=== PATIENT | male | born 1965 | race African-American/Black ===

== ENCOUNTER 2017-08-05 08:01 | Emergency (ER) | payer SELFPAY ==
[~2017-08-05] VITALS: Ht 175.3 cm; Wt 130.0 kg
[2017-08-05 08:27] LABS: HEMATOCRIT 48.2 % (39.0-50.0); IMMATURE GRANULOCYTES 0.2 % (0.0-1.0); MEAN CELL VOLUME 95.8 fL CALC (80.0-100.0); MEAN CORPUSCULAR HGB 31.8 pG CALC (26.0-32.0); MEAN CORPUSCULAR HGB CONC 33.2 g/L CALC (32.0-36.0); NEUT# 4.85 thou/uL (1.82-7.42); RED BLOOD COUNT 5.03 mill/uL (4.70-6.10); RED CELL DISTRI WIDTH 12.5 % (11.5-15.5)
[2017-08-05 08:39] LABS: ALBUMIN 4.5 g/dL (3.2-5.0); BILIRUBIN, TOTAL 0.9 mg/dL (0.0-1.4); CREATININE 1.5 mg/dL (0.7-1.3); POTASSIUM 3.9 mmol/l (3.5-5.1); TOTAL PROTEIN 7.8 g/dL (6.3-8.2)
[2017-08-05] MEDS ORDERED: HYDROCO/APAP1 TA9 PO (10:13)
[2017-08-05] MEDS ORDERED: CEPHALEXIN500 M1 PO (10:13)
[2017-08-05] MEDS ORDERED: TAMSULOSIN0.4 MG PO (10:13)
[2017-08-05] MEDS ORDERED: MOTRIN400 MG PO (10:13)
[2017-08-05] MEDS ORDERED: ONDANSETRON4 MG PO (10:15)
[2017-08-05] MEDS ORDERED: PHENERGAN25 M1 PO (10:35)
[2017-08-05] MEDS ORDERED: RANITIDINE150 M1 PO (10:35)
[2017-08-05 10:40] VITALS: BP 141/75
[2017-08-05 11:21] LABS: URINE BILIRUBIN - DIPSTICK NEGATIVE (NEGATIVE); URINE BLOOD DIPSTICK LARGE (NEGATIVE); URINE COLOR YELLOW; URINE GLUCOSE - DIPSTICK NEGATIVE (NEGATIVE); URINE KETONE NEGATIVE (NEGATIVE); URINE NITRITE - DIPSTICK NEGATIVE (Negative); URINE PROTEIN - DIPSTICK NEGATIVE (NEG-TRACE); URINE SPECIFIC GRAVITY <=1.005; URINE UROBILINOGEN - DIPSTICK 0.2 E.U./dL (0.2)
[2017-08-05 11:23] LABS: URINE CLARITY SL CLOUDY; URINE LEUK ESTERASE SMALL (NEGATIVE); URINE RBC 25-50 RBC/hpf (0-5)
[2017-08-05 11:24] LABS: URINE BACTERIA FEW hpf; URINE EPITHELIAL CELLS RARE EPI/hpf (0-FEW)
== END 2017-08-05 11:00 | disposition home or self-care (01) | DRG 694 ==
LOC: ED 08:01
PROVIDERS: Family Medicine
DX: N20.1 Calculus of ureter (principal); R19.5 Other fecal abnormalities
CPT/HCPCS: Q9967

== ENCOUNTER 2017-08-08 21:12 | Emergency (ER) | payer SELFPAY ==
[~2017-08-08] VITALS: Ht 175.3 cm; Wt 99.0 kg
[~2017-08-08 21:12] MED LIST: CEPHALEXIN500 M1 PO; HYDROCO/APAP1 TA9 PO; MOTRIN400 MG PO; ONDANSETRON4 MG PO; PHENERGAN25 M1 PO; RANITIDINE150 M1 PO; TAMSULOSIN0.4 MG PO
[2017-08-08 22:07] LABS: IMMATURE GRANULOCYTES 0.3 % (0.0-1.0); MEAN CELL VOLUME 95.7 fL CALC (80.0-100.0); MEAN CORPUSCULAR HGB 32.5 pG CALC (26.0-32.0); MEAN CORPUSCULAR HGB CONC 33.9 g/L CALC (32.0-36.0); NEUT# 8.58 thou/uL (1.82-7.42); RED BLOOD COUNT 4.19 mill/uL (4.70-6.10); RED CELL DISTRI WIDTH 12.3 % (11.5-15.5)
[2017-08-08 22:08] LABS: HEMATOCRIT 40.1 % (39.0-50.0); HEMOGLOBIN 13.6 g/dl (14.0-18.0)
[2017-08-08 22:09] LABS: URINE BILIRUBIN - DIPSTICK NEGATIVE (NEGATIVE); URINE BLOOD DIPSTICK LARGE (NEGATIVE); URINE GLUCOSE - DIPSTICK NEGATIVE (NEGATIVE); URINE KETONE NEGATIVE (NEGATIVE); URINE LEUK ESTERASE TRACE (NEGATIVE); URINE NITRITE - DIPSTICK NEGATIVE (Negative); URINE PROTEIN - DIPSTICK 100 mg/dL (NEG-TRACE); URINE SPECIFIC GRAVITY >=1.030; URINE UROBILINOGEN - DIPSTICK 0.2 E.U./dL (0.2)
[2017-08-08 22:13] LABS: URINE CLARITY CLOUDY; URINE COLOR AMBER
[2017-08-08 22:17] LABS: URINE AMORPH SEDIMENT MANY hpf (NONE-FER); URINE SQUAMOUS EPITHELIAL CELL FEW EPI/hpf (0-FEW)
[2017-08-08 22:22] LABS: ALBUMIN 3.7 g/dL (3.2-5.0); BILIRUBIN, TOTAL 0.6 mg/dL (0.0-1.4); CREATININE 1.8 mg/dL (0.7-1.3); POTASSIUM 3.8 mmol/l (3.5-5.1); TOTAL PROTEIN 6.5 g/dL (6.3-8.2)
[2017-08-08] MEDS ORDERED: TORADOL PO (23:21)
[2017-08-08 23:33] VITALS: BP 130/75
== END 2017-08-09 00:18 | disposition home or self-care (01) | DRG 694 ==
LOC: ED 21:12
PROVIDERS: Family Medicine
DX: N13.2 Hydronephrosis with renal and ureteral calculous obstruction (principal); R10.31 Right lower quadrant pain; R11.2 Nausea with vomiting, unspecified; R50.9 Fever, unspecified; R10.32 Left lower quadrant pain